=== PATIENT | male | born 1995 | race Two or more races ===

== ENCOUNTER 2019-06-29 23:00 | Emergency (ER) | payer OTHER ==
[~2019-06-29] VITALS: Ht 185.4 cm; Wt 70.3 kg
--- NOTE | 2019-06-29 23:10 | NUR ---
ED Nurse Note: Nurse Note: pt presents to ED via EMS arrival accompanied by RPATIMA after he attempted suicide RN MANAGER. per EMS pt tried to use his girlfriend's curling iron cord to choke himself. he has 2 dark strangulation fatima on his neck. pt reprots he used a razor blade to cut his wrists. his right wrist has about 13 laceration fatima and his left wrist has 4 lacerations, two of them are open. all of the scars are actively bleeding. pt also reports taking "sleeping meds" but an unknown amount and unknown medication. pt states that he has a h/o anxiety and depression but he hasnt been taking his meds.
[2019-06-29] MEDS ORDERED: PROZAC20 MG ORAL (23:11)
[2019-06-29] MEDS ORDERED: Activated Charcoal 50gm/240ml Btl ORAL ONE (23:15)
--- NOTE | 2019-06-29 23:15 | NUR ---
nursing field operations supervisor has been notified for sitter at bedside
[2019-06-29 23:20] VITALS: BP 112/80
[2019-06-29 23:39] LABS: BASOPHILS % (AUTO) 0.5 % (0.0-2.0); EOSINOPHILS % (AUTO) 0.8 % (0.0-3.0); HEMATOCRIT 42.9 % (42.0-52.0); HEMOGLOBIN 15.4 G/DL (14.2-18.0); MEAN CORPUSCULAR VOLUME 87 FL (80-99); MONOCYTES % (AUTO) 4.4 % (1.0-10.0); NEUTROPHILS % (AUTO) 76.3 % (45.0-75.0); PLATELET COUNT 216 K/UL (150-450); RED BLOOD COUNT 4.93 M/UL (4.70-6.10); RED CELL DISTRIBUTION WIDTH 11.6 % (11.6-14.8); WHITE BLOOD COUNT 11.4 K/UL (4.8-10.8)
[2019-06-29 23:52] LABS: ANION GAP 10 mmol/L (5-15); BLOOD UREA NITROGEN 8 mg/dL (7-18); CALCIUM 9.1 MG/DL (8.5-10.1); CARBON DIOXIDE 27 MMOL/L (21-32); CHLORIDE 98 MMOL/L (98-107); CREATININE 1.3 MG/DL (0.55-1.30); POTASSIUM 3.1 MMOL/L (3.5-5.1); SODIUM 135 MMOL/L (136-145)
[2019-06-29 23:56] LABS: ALANINE AMINOTRANSFERASE 41 U/L (12-78); ALBUMIN 4.3 G/DL (3.4-5.0); ALBUMIN/GLOBULIN RATIO 1.4 (1.0-2.7); ALKALINE PHOSPHATASE 65 U/L (46-116); ASPARTATE AMINO TRANSFERASE 18 U/L (15-37); BILIRUBIN,TOTAL 0.9 MG/DL (0.2-1.0)
[2019-06-29] MEDS ORDERED: Neosporin Oint Ud Pkt TOPIC ONE (23:58)
--- NOTE | 2019-06-30 | NUR ---
ED Nurse Note: pt tolerated lac repair well, wounds have been dressed by health and safety technician
--- NOTE | 2019-06-30 00:15 | NUR ---
sitter at bedside
--- NOTE | 2019-06-30 00:18 | Emergency Room Report ---
History of Present Illness General Chief Complaint: Behavioral Complaint Source: Patient Present Illness HPI This is a 24-year-old male with no past medical history. He does have a history of drug abuse. He was brought in as a 5150 with chief complaint of suicidal attempt. Patient said that he took some sleeping pill tonight. He cut himself on both forearms and try to hang himself. His girlfriend found him and called 911. Patient said he felt depressed and anxious. Does not want to live. Denies any alcohol tonight. Denies any respiratory distress. Said he felt sleepy. He took unknown amount of sleeping medication a few hours prior to arrival. Denies any other complaint. Never been in a psychiatric facility. Allergies: Coded Allergies: No Known Allergies (Unverified , 06/29/19) Patient History Past Medical History: see triage record, old chart reviewed Past Surgical History: none Family History: none Social History: tobacco use, ETOH, drug use Immunizations: other Reviewed Nursing Documentation: PMH: Agreed; PSxH: Agreed Nursing Documentation-PMH Past Medical History: No History, Except For Review of Systems ENT: Denies: sore throat Cardiovascular: Denies: chest pain, palpitations Gastrointestinal/Abdominal: Denies: nausea, vomiting, diarrhea Musculoskeletal: Denies: back problems Skin: Denies: rash Psychiatric: Reports: depression, suicidal/homicidal ideations Neurological: Denies: LENTZ, seizures All Other Systems: negative except mentioned in HPI Physical Exam Vital Signs Date Time Temp Pulse Resp B/P (MAP) Pulse Ox O2 Delivery O2 Flow Rate FiO2 06/29/19 22:59 98.4 117 19 112/80 (91) 98 Room Air Vitals with tachycardia Sp02 EP Interpretation: reviewed, normal General Appearance: alert/responsive, no apparent distress, non-toxic Head: normocephalic, atraumatic Eyes: PERRL, EOMI ENT: oropharynx normal Neck: supple/symm/no masses, other - He has abrasion mostly on the left side of the neck shape of ligature shadia. No crepitance or stridor. Respiratory: effort normal, no rhonchi, no wheezing Cardiovascular: no murmur, gallop, rub Gastrointestinal: non-tender, no mass, non-distended, no rebound/guarding, normal bowel sounds Musculoskeletal: gait & station normal, other - Both forearms with multiple laceration. Some are gaping and oozing blood. No tendon laceration or nerve injury. Neurologic: oriented x3, sensory intact, motor strength/tone normal Skin: no rash, normal palpation Procedures Laceration/Wound Repair Laceration/Wound Repair #1: Consent: Verbal Wound Location: upper extremity - Forearm, left Wound's Depth, Shape: linear Wound Length (cm): 15 Wound Explored: clean Irrigated w/ Saline (ccs): 1000 Anesthesia: 1% Lidocaine Volume Anesthetic (ccs): 12 Wound Debrided: minimal Wound Repaired With: sutures Suture Size/Type: 5:0, nylon Number of Sutures: 24 Layer Closure?: No Sterile Dressing Applied?: Yes Patient Tolerated: Well Complications: None Laceration/Wound Repair #2: Consent: Emergent Wound Location: upper extremity - Right forearm Wound's Depth, Shape: superficial, linear Wound Length (cm): 17 Wound Explored: clean Irrigated w/ Saline (ccs): 1000 Betadine Prep?: Yes Anesthesia: 1% Lidocaine Volume Anesthetic (ccs): 10 Wound Debrided: None Wound Repaired With: sutures Suture Size/Type: 5:0, nylon Number of Sutures: 27 Layer Closure?: No Sterile Dressing Applied?: Yes Patient Tolerated: Well Complications: None Progress He has multiple laceration on his left forearm. 2 were particularly deep in the other. Both of them are by the wrist. He has a couple of laceration that extend around to the dorsal aspect of the forearm at the mid forearm. Total length of the lacerations is 15 cm. He has multiple laceration on the right forearm. These are not as deep as the left but more numerous. They measure about 17 cm in total. No foreign body or tendon laceration. No nerve or artery injury. Medical Decision Making Diagnostic Impression: Primary Impression: Suicide and self-inflicted injury Qualified Codes: X83.8XXA - Intentional self-harm by other specified means, initial encounter Additional Impressions: Forearm laceration Qualified Codes: S51.819A - Laceration without foreign body of unspecified forearm, initial encounter Overdose Qualified Codes: T50.902A - Poisoning by unspecified drugs, medicaments and biological substances, intentional self-harm, initial encounter Hypokalemia ER Course Patient with overdose in suicide attempt. His hanging ligature injury show no evidence of tracheal injury. There is no crepitance or change in his phonation. No evidence of any fracture. His wounds are relatively superficial. No tendon laceration or nerve injury. No arterial injury. Patient given charcoal here. IV fluid given. Because of the multiple laceration, I gave him Ancef also. Repeat Tylenol level. If negative, will medically clear for psychiatric transfer and evaluation. At approximately 1:45 AM there was blood on the stretcher in on the floor. I checked the patient wound on his left wrist. The one over there the arterial artery side was bleeding. I hope pressure and slow down the bleeding. Without pressure or start bleeding again. I suspect that there is a vessel injury. So I placed a blood pressure cuff and tourniquet on his left arm. I took down the 4 sutures on that side. I explored the wound. He had ligated a vein next to the radial artery. It was bleeding from that. I ligated the 2 end of the vein. I placed a total of 3 internal sutures. And then I suture the outside with 4 interrupted suture. This stopped the bleeding. Patient tolerated suture without any problem. This was done under sterile condition. It is medically clear for psychiatric evaluation and transfer. EKG Diagnostic Results Rate: normal Rhythm: NSR ST Segments: no acute changes Rhythm Strip Diag. Results EP Interpretation: yes Rate: 88 Rhythm: NSR, no PVC's, no ectopy Last Vital Signs Date Time Temp Pulse Resp B/P (MAP) Pulse Ox O2 Delivery O2 Flow Rate FiO2 06/29/19 23:20 98.4 19 112/80 98 Room Air 06/29/19 23:20 117 Status: improved Disposition: XFER TO PSYCH HOSP/UNIT Condition: Stable Referrals: NOT CHOSEN SARA/,REFERRING (PCP) Deng Landis MD Jun 30, 2019 00:18
[2019-06-30] MEDS ORDERED: ceFAZolin 1gm/50ml Premix 50 ML IV ONE (00:30)
[2019-06-30] MEDS ORDERED: Tetanus/Diptheria/Pertussis IM ONE (00:30)
[2019-06-30] MEDS ORDERED: Neosporin Oint Ud Pkt TOPIC ONE (00:30)
--- NOTE | 2019-06-30 01:58 | NUR ---
ED Nurse Note: ERMD at bedside adding sutures to L wrist as pt began to bleed from one of the lacerations. pt will be moved to bed 6. care endorsed to TRAM Sandoval
[2019-06-30 02:09] LABS: ANION GAP 9 mmol/L (5-15); BLOOD UREA NITROGEN 8 mg/dL (7-18); CALCIUM 8.6 MG/DL (8.5-10.1); CARBON DIOXIDE 25 MMOL/L (21-32); CHLORIDE 102 MMOL/L (98-107); POTASSIUM 3.3 MMOL/L (3.5-5.1); SODIUM 136 MMOL/L (136-145)
[2019-06-30 02:11] LABS: APPEARANCE,URINE CLEAR; BILIRUBIN, URINE NEGATIVE (NEGATIVE); GLUCOSE, URINE (UA) NEGATIVE (NEGATIVE); KETONES,URINE 2+ (NEGATIVE); LEUKOCYTE ESTERASE ,URINE NEGATIVE (NEGATIVE); NITRITE,URINE NEGATIVE (NEGATIVE); PH,URINE 6 (4.5-8.0); PROTEIN,URINE 2+ (NEGATIVE); UROBILINOGEN,URINE 1 MG/DL (0.0-1.0)
[2019-06-30 02:12] LABS: COLOR,URINE YELLOW
[2019-06-30 02:30] VITALS: BP 120/82
--- NOTE | 2019-06-30 03:02 | NUR ---
ED Nurse Note: Patient transferred from Ortho to Bed 6. Patient alert, oriented, cooperative. No SOB. Breathing even and unlabored. VSS.
[2019-06-30 03:12] VITALS: BP 127/82
[2019-06-30 05:06] VITALS: BP 129/79
--- NOTE | 2019-06-30 05:06 | NUR ---
ED Nurse Note: Patient seen sleeping in bed. No SOB. Breathing even and unlabored. VSS. Sitter at bedside.
[2019-06-30 07:12] VITALS: BP 131/76
--- NOTE | 2019-06-30 07:21 | NUR ---
HAND-OFF: Report given to Nancy UGALDE. Endorsed plan of care.
--- NOTE | 2019-06-30 07:22 | NUR ---
ED Nurse Note: Receive patient in bed, patient placed on a director phone, vital sigsn stable see flowsheet. patient is alert awake x4, breakfast tray provided, patient ate and able to tolerate his breakfast well. patient's own changed to clean ones, wound dressings on the right and left forarm changed, wound assessed, no bleeding noted. IV was noted to be discontinued by patient, removed all IV dressing, no bleeding noted. sitter at bedside.
[2019-06-30 09:00] VITALS: BP 127/72
--- NOTE | 2019-06-30 10:01 | NUR ---
ED Nurse Note: spoke with Ashly at [facility], nurse to nurse report to be given to [phone]. Patient to be transferred after 1200PM. and report to be given around that time per Di Di
--- NOTE | 2019-06-30 10:03 | NUR ---
HAND-OFF: Report given to Nancy UGALDE. patient transferred to ortho with sitter.
--- NOTE | 2019-06-30 10:17 | NUR ---
ED Nurse Note:pt. is calm, sitter is at bedside
--- NOTE | 2019-06-30 13:15 | NUR ---
ER DISCHARGE NOTE: Patient is cleared to be Transferred. Patient is being transferred accompanied by ambulance personnel and belongings were sent with patient. Addendum: 06/30/19 at 1501 by RENALDO D/C ORDER FOR MILA AT 1823
[2019-06-30 13:17] VITALS: BP 113/78
--- NOTE | 2019-06-30 14:19 | Cardiology Report ---
APPROVED REPORT EKG Measurement Heart [id number] Normal sinus rhythm Possible Left atrial enlargement Septal infarct, age undetermined Abnormal ECG
== END 2019-06-30 13:17 ==
LOC: EDBD 23:00 → EMR 23:14
DX: T50.902A Poisoning by unspecified drugs, medicaments and biological substances, intentional self-harm, initial encounter (principal); S51.819A Laceration without foreign body of unspecified forearm, initial encounter; S51.812A Laceration without foreign body of left forearm, initial encounter; S51.811A Laceration without foreign body of right forearm, initial encounter; S61.512A Laceration without foreign body of left wrist, initial encounter; Y92.9 Unspecified place or not applicable; X78.9XXA Intentional self-harm by unspecified sharp object, initial encounter; E87.6 Hypokalemia; Z23 Encounter for immunization
CPT/HCPCS: 12007; 13120; 36415; 80048; 80053; 80307; 81003; 85025; 90471; 90715; 93005; 96361; 96365; 99285; G0480; J0690; J7030; J8499

== ENCOUNTER 2019-07-08 16:59 | Emergency (ER) | payer OTHER ==
[~2019-07-08] VITALS: Ht 180.3 cm; Wt 83.9 kg
[2019-07-08] VITALS (9 sets, daily range): BP systolic 124–168; BP diastolic 54–87
[~2019-07-08 16:59] MED LIST: PROZAC20 MG ORAL
--- NOTE | 2019-07-08 17:00 | NUR ---
ED Nurse Note: Patient arrived via [employer] with police escort not under arrest. Arrived from home. Per police, neighbors called because pt was running naked in the apartment hallways after doing crystal meth. Pt denies suicidal/homicidal ideation. Pt initially confused, not cooperative with care, banging head on siderail. Seizure pads applied to side rail to protect patient. Pt tolerated IV start/lab draw well. MD at bedside. Meds ordered. Pt without chest pain, N&V, or diarrhea. No dyspnea.
--- NOTE | 2019-07-08 17:14 | Emergency Room Report ---
History of Present Illness General Chief Complaint: Overdose Source: Patient Present Illness HPI Disclaimer: Please note that this report is being documented using DRAGON technology. This can lead to erroneous entry secondary to incorrect interpretation by the dictating instrument. HPI: 24-year-old male history of polysubstance abuse presents for evaluation of agitation and bizarre behavior. EMS brings him in after his building cleaner called the police. He was found wandering his lobby naked, acting erratically, shouting out and lashing out at people. He reportedly admitted to doing crystal meth over the past few days unclear if there are any other drug use or alcohol use. The patient cannot provide any information and all he says is " you are not in your realm." He is lashing out at staff and arrives restrained by EMS. He is not providing any medical history. No trauma was reported by EMS. Review of his medical record shows he was in the emergency department recently with self-inflicted wounds over his upper extremities. The sutures appear to be in place and the wounds are healing well. No reported suicidality per EMS. Cannot assess the patient at this time. PMH: Substance abuse PSH: Unknown Allergies: Unknown Social Hx: Reported crystal meth use otherwise unknown Allergies: Coded Allergies: No Known Allergies (Unverified , 06/29/19) Nursing Documentation-PMH Past Medical History: No Stated History Review of Systems All Other Systems: limited - Cannot obtain due to clinical condition Physical Exam Vital Signs Date Time Temp Pulse Resp B/P (MAP) Pulse Ox O2 Delivery O2 Flow Rate FiO2 07/08/19 16:56 134 20 168/75 (106) 99 Room Air General: Awake, agitated, flashing out at staff, restrained in bed HEENT: NC/AT. EOMI. pupils are 8 mm and reactive bilaterally. Dry mucous membranes. Neck: Supple, trachea midline Chest Wall: No tenderness, no deformity Cardiovascular: Tachycardic. S1 and S2 normal. No murmur appreciated Resp: Normal work of breathing. No cough, wheezing or crackles appreciated Abdomen: Abdomen is soft, nondistended. Nontender Skin: Intact. Dry. No abrasions, laceration or rash over the exposed skin MSK: Normal tone and bulk. Moving all extremities. No obvious deformity. No significant rigidity Neuro: Awake, aggressive, lashing out, screaming and speaking nonsensically. Moving all extremities. No clonus in the lower extremities. Medical Decision Making Restraint Reassesment I, Timothy Presley MD, have personally evaluated this patient. Laboratory tests have been reviewed and addressed accordingly. The patient is deemed to present a danger to themselves and/or others. This is based on the exam, history ( provided by patient, EMS/[employer] and/or family) and observed or reported behavior. Attempts for non-invasive measures have been considered and/or attempted, however, have been futile. It is in the best interest of the nursing staff, the patient, and others involved in this patient's care that behavioral restraints be applied. Patient evaluation reveals the following: Delirium, combativeness, danger to staff Diagnostic Impression: Primary Impression: Amphetamine abuse Additional Impression: Dehydration ER Course Is a 24-year-old male presenting with acute agitation in the setting of reported crystal meth abuse. Unknown if there are any coingestants. No trauma reported by EMS. The patient requires restraints as he is lashing out at staff , agitated and combative. We will start a broad metabolic, infectious and tox logic work-up. Differential includes but is not limited to substance abuse, dehydration, acute psychosis, serotonin syndrome, NMS, anticholinergic syndrome , alcohol intoxication, major metabolic dysfunction. We will start IV fluids, obtain EKG, broad labs and patient will require chemical sedation. Will remain in wrist restraints until he is more cooperative. Laboratory Tests Test 07/08/19 17:19 White Blood Count 12.1 K/UL (4.8-10.8) H Red Blood Count 4.47 M/UL (4.70-6.10) L Hemoglobin 13.9 G/DL (14.2-18.0) L Hematocrit 38.9 % (42.0-52.0) L Mean Corpuscular Volume 87 FL (80-99) Mean Corpuscular Hemoglobin 31.1 PG (27.0-31.0) H Mean Corpuscular Hemoglobin Concent 35.7 G/DL (32.0-36.0) Red Cell Distribution Width 11.8 % (11.6-14.8) Platelet Count 312 K/UL (150-450) Mean Platelet Volume 7.9 FL (6.5-10.1) Neutrophils (%) (Auto) 61.5 % (45.0-75.0) Lymphocytes (%) (Auto) 27.4 % (20.0-45.0) Monocytes (%) (Auto) 9.8 % (1.0-10.0) Eosinophils (%) (Auto) 0.2 % (0.0-3.0) Basophils (%) (Auto) 1.1 % (0.0-2.0) Urine Color Yellow Urine Appearance Clear Urine pH 5 (4.5-8.0) Urine Specific Dumas 1.025 (1.005-1.035) Urine Protein 3+ (NEGATIVE) H Urine Glucose (UA) Negative (NEGATIVE) Urine Ketones 2+ (NEGATIVE) H Urine Blood Negative (NEGATIVE) Urine Nitrite Negative (NEGATIVE) Urine Bilirubin Negative (NEGATIVE) Urine Urobilinogen 1 MG/DL (0.0-1.0) H Urine Leukocyte Esterase 1+ (NEGATIVE) H Urine RBC 0-2 /HPF (0 - 0) H Urine WBC 0-2 /HPF (0 - 0) Urine Squamous Epithelial Cells None /LPF (NONE/OCC) Urine Bacteria None /HPF (NONE) Urine Mucus Many /LPF (NONE/OCC) H Sodium Level 145 MMOL/L (136-145) Potassium Level 3.7 MMOL/L (3.5-5.1) Chloride Level 104 MMOL/L (98-107) Carbon Dioxide Level 26 MMOL/L (21-32) Anion Gap 15 mmol/L (5-15) Blood Urea Nitrogen 16 mg/dL (7-18) Creatinine 1.5 MG/DL (0.55-1.30) H Estimate Glomerular Filtration Rate 57.0 mL/min (>60) Glucose Level 133 MG/DL (74-106) H Calcium Level 10.1 MG/DL (8.5-10.1) Total Bilirubin 0.6 MG/DL (0.2-1.0) Aspartate Amino Transferase (AST) 50 U/L (15-37) H Alanine Aminotransferase (ALT) 61 U/L (12-78) Alkaline Phosphatase 74 U/L (46-116) Total Creatine Kinase 1049 U/L (26-308) H Troponin I 0.000 ng/mL (0.000-0.056) Total Protein 8.3 G/DL (6.4-8.2) H Albumin 4.9 G/DL (3.4-5.0) Globulin 3.4 g/dL Albumin/Globulin Ratio 1.4 (1.0-2.7) Salicylates Level 1.7 ug/mL (2.8-20) L Urine Opiates Screen Negative (NEGATIVE) Acetaminophen Level < 2 MCG/ML (10-30) L Urine Barbiturates Screen Negative (NEGATIVE) Phencyclidine (PCP) Screen Negative (NEGATIVE) Urine Amphetamines Screen Positive (NEGATIVE) H Urine Benzodiazepines Screen Positive (NEGATIVE) H Urine Cocaine Screen Negative (NEGATIVE) Urine Marijuana (THC) Screen Positive (NEGATIVE) H Serum Alcohol < 3 mg/dL EKG Diagnostic Results Rate: tachycardiac Rhythm: NSR ST Segments: no acute changes Other Impression Sinus tachycardia, slight right axis, normal intervals, no ST segment changes Rhythm Strip Diag. Results EP Interpretation: yes Rate: 110s Rhythm: no PVC's, no ectopy Reevaluation Time: 21:22 Last Vital Signs Date Time Temp Pulse Resp B/P (MAP) Pulse Ox O2 Delivery O2 Flow Rate FiO2 07/08/19 16:56 134 20 168/75 (106) 99 Room Air Reevaluation Impression Toxin returned positive for amphetamines and THC as well as benzodiazepines that he was given those in the emergency department. Labs show slight elevation in creatinine likely dehydration as well as secondary to some small amount of muscle breakdown given his amphetamine use and agitation. He has now calm and cooperative. Remains tachycardic but now he admits to using amphetamines earlier in the day. He denies suicidality and states this was recreational. He denies any complaints at this time and is requesting discharge home. He has received 2 L IV fluids. Patient is behaving appropriately and thinking clearly. He has capacity to make his own medical decisions. I discussed with him the need to drink copious amounts of fluids over the next few days to continue flushing his kidneys and that he needs to follow-up with the PMD or return to the emergency department here for repeat testing of his creatinine within the week. Names of clinics in the area have been provided in his discharge paperwork. We discussed reasons to return to the emergency department. He will be discharged to follow-up as an outpatient. Disposition: HOME, SELF-CARE Condition: Improved Timothy Presley MD Jul 08, 2019 17:14
[2019-07-08] MEDS ORDERED: LORazepam Inj 2mg/ml 1ml IV ONE (17:15)
[2019-07-08] MEDS ORDERED: UNOBMED (17:17)
[2019-07-08 17:35] LABS: BASOPHILS % (AUTO) 1.1 % (0.0-2.0); EOSINOPHILS % (AUTO) 0.2 % (0.0-3.0); HEMATOCRIT 38.9 % (42.0-52.0); HEMOGLOBIN 13.9 G/DL (14.2-18.0); LYMPHOCYTES % (AUTO) 27.4 % (20.0-45.0); MEAN CORPUSCULAR VOLUME 87 FL (80-99); MONOCYTES % (AUTO) 9.8 % (1.0-10.0); NEUTROPHILS % (AUTO) 61.5 % (45.0-75.0); PLATELET COUNT 312 K/UL (150-450); RED BLOOD COUNT 4.47 M/UL (4.70-6.10); RED CELL DISTRIBUTION WIDTH 11.8 % (11.6-14.8); WHITE BLOOD COUNT 12.1 K/UL (4.8-10.8)
--- NOTE | 2019-07-08 17:35 | NUR ---
ED Nurse Note: Pt with good affect from ativan. Tolerates straight cath/urine obtainment well. Pt noted to be more calm. Closer observation of pt. Pt denies desire to notify staff to notify next of kin or family/friends. No respiratory depression.
[2019-07-08 17:46] LABS: ANION GAP 15 mmol/L (5-15); BLOOD UREA NITROGEN 16 mg/dL (7-18); CALCIUM 10.1 MG/DL (8.5-10.1); CARBON DIOXIDE 26 MMOL/L (21-32); CHLORIDE 104 MMOL/L (98-107); CREATININE 1.5 MG/DL (0.55-1.30); POTASSIUM 3.7 MMOL/L (3.5-5.1); SODIUM 145 MMOL/L (136-145)
[2019-07-08 17:48] LABS: APPEARANCE,URINE CLEAR; BILIRUBIN, URINE NEGATIVE (NEGATIVE); GLUCOSE, URINE (UA) NEGATIVE (NEGATIVE); KETONES,URINE 2+ (NEGATIVE); LEUKOCYTE ESTERASE ,URINE 1+ (NEGATIVE); NITRITE,URINE NEGATIVE (NEGATIVE); PH,URINE 5 (4.5-8.0); PROTEIN,URINE 3+ (NEGATIVE); UROBILINOGEN,URINE 1 MG/DL (0.0-1.0)
--- NOTE | 2019-07-08 17:48 | NUR ---
ED Nurse Note: Pt refuses EKG. aware. Pt educated regarding EKG.
[2019-07-08 17:50] LABS: COLOR,URINE YELLOW
--- NOTE | 2019-07-08 17:51 | NUR ---
Attempted EKG, patient refused. Patient became extremely agitated. ERMD and RN notified.
[2019-07-08 17:59] LABS: ALANINE AMINOTRANSFERASE 61 U/L (12-78); ALBUMIN 4.9 G/DL (3.4-5.0); ALBUMIN/GLOBULIN RATIO 1.4 (1.0-2.7); ALKALINE PHOSPHATASE 74 U/L (46-116); ASPARTATE AMINO TRANSFERASE 50 U/L (15-37); BILIRUBIN,TOTAL 0.6 MG/DL (0.2-1.0); CREATINE KINASE 1049 U/L (26-308)
--- NOTE | 2019-07-08 18:00 | NUR ---
ED Nurse Note: pt becoming more calm but cont with confusion when rn speaking to him with nonsensical paranoid conversations. pt vague as to why lapd alled and what happened at home
--- NOTE | 2019-07-08 18:15 | NUR ---
ED Nurse Note: pt reeval by md, pt more calm ankle restraints removed. new orders noted
--- NOTE | 2019-07-08 18:30 | NUR ---
ED Nurse Note: all restraints d/c'd as pt is now calm and cooperative with rn care and after md reeval. no new c/o
--- NOTE | 2019-07-08 18:42 | NUR ---
ED Nurse Note: pt noted to have bilat healing lacerations to inner wrists. [facility] and to go to in [facility] center in [place]. pt relates not a prior suicide attempt but a self mutilation attempt.
--- NOTE | 2019-07-08 18:59 | NUR ---
ED Nurse Note: pt remains cooperative and calm at this time. ivf infusing without incident.
--- NOTE | 2019-07-08 19:00 | NUR ---
ED Nurse Note: Received report from Lizz UGALDE. Patient is currently willing to adhere to plan. Patient is A&Ox4, IV fluids running. Will continue to monitor.
[2019-07-08] MEDS ORDERED: DIAZEPAM IV ONE (19:45)
[2019-07-08] MEDS ORDERED: [UNRECOGNIZED DRUG - OTHER] IV ONE (19:45)
--- NOTE | 2019-07-08 20:00 | NUR ---
ED Nurse Note: Patient is a little aggitated, will continue to monitor and reassure patient of plan.
--- NOTE | 2019-07-08 21:00 | NUR ---
ED Nurse Note: Patient changed mind about receiving valium to calm tachycardia. Patient tolerated medication well. N/S Fluids running, will continue to monitor until discharge.
--- NOTE | 2019-07-08 21:30 | NUR ---
ED Nurse Note: Patient tolerated fluids well. Patient cleared for discharge with no s/s of acute distress. Appears calm and is A&Ox4. Heart rate improved to 110. Patient verbalized understanding of discharge instructions. ID band removed, IV removed. Patient departed with all belongings.
--- NOTE | 2019-07-08 21:44 | NUR ---
ED Nurse Note: Patient provided with adequest clothes for the weather, a shirt, jeans, socks and tennis shoes.
--- NOTE | 2019-07-09 15:54 | Cardiology Report ---
APPROVED REPORT EKG Measurement Heart [id number] Sinus tachycardia Rightward axis Borderline ECG
== END 2019-07-08 21:46 | disposition home or self-care (01) ==
LOC: EDBD 16:59 → EMR 17:28
DX: F15.10 Other stimulant abuse, uncomplicated (principal); E86.0 Dehydration; R00.0 Tachycardia, unspecified
CPT/HCPCS: 36415; 80053; 80307; 81003; 82550; 84484; 85025; 93005; 96361; 96374; 96375; 99284; G0480; J3360; J7030

== ENCOUNTER 2019-07-10 07:52 | Emergency (ER) | payer OTHER ==
[~2019-07-10] VITALS: Ht 177.8 cm; Wt 65.8 kg
[~2019-07-10 07:52] MED LIST changes: +UNOBMED
--- NOTE | 2019-07-10 08:00 | NUR ---
ED Nurse Note: Patient arrived by EMS from home. Per EMS, patient was drinking ETOH and smoking marijuana last night, and his girlfriend called 911 this AM. Patient Alert and oriented, refusing to answer most questions. Patient has flat affect. Cooperative and follows commands. Multiple cuts noted on bilateral wrist, closed with stitches. Patient on the equipment monitor phototypesetting, bed in lowest position.
[2019-07-10 08:08] VITALS: BP 153/98
--- NOTE | 2019-07-10 08:14 | Emergency Room Report ---
History of Present Illness General Chief Complaint: Alcohol Intoxication Source: Patient, EMS Present Illness HPI Patient presents after allegedly drinking alcohol and possibly using other drugs last night. He told police that if he was left alone he would harm himself. When paramedics arrived he denied suicidal ideation with them but they say that he was not answering questions. He states he is supposed be taking medication for depression. According to police he told them that if he was left alone he would harm himself. The patient is not answering questions at this time. The patient was seen June 29 after a significant suicide attempt. This is the ER decision making: ER Course Patient with overdose in suicide attempt. His hanging ligature injury show no evidence of tracheal injury. There is no crepitance or change in his phonation. No evidence of any fracture. His wounds are relatively superficial. No tendon laceration or nerve injury. No arterial injury. Patient given charcoal here. IV fluid given. Because of the multiple laceration, I gave him Ancef also. Repeat Tylenol level. If negative, will medically clear for psychiatric transfer and evaluation. At approximately 1:45 AM there was blood on the stretcher in on the floor. I checked the patient wound on his left wrist. The one over there the arterial artery side was bleeding. I hope pressure and slow down the bleeding. Without pressure or start bleeding again. I suspect that there is a vessel injury. So I placed a blood pressure cuff and tourniquet on his left arm. I took down the 4 sutures on that side. I explored the wound. He had ligated a vein next to the radial artery. It was bleeding from that. I ligated the 2 end of the vein. I placed a total of 3 internal sutures. And then I suture the outside with 4 interrupted suture. This stopped the bleeding. Patient tolerated suture without any problem. This was done under sterile condition. It is medically clear for psychiatric evaluation and transfer. Allergies: Coded Allergies: No Known Allergies (Unverified , 06/29/19) Patient History Limited by: medical condition Past Medical History: see triage record, old chart reviewed Social History: Reports: alcohol use, drug use Social History Narrative With girlfriend Reviewed Nursing Documentation: PMH: Agreed; PSxH: Agreed Nursing Documentation-PMH Past Medical History: No History, Except For History Of Psychiatric Problem: Yes - bipolar, depression Review of Systems All Other Systems: limited Physical Exam Vital Signs Date Time Temp Pulse Resp B/P (MAP) Pulse Ox O2 Delivery O2 Flow Rate FiO2 07/10/19 07:52 98.2 100 18 140/94 (109) 98 Room Air Sp02 EP Interpretation: reviewed, normal General Appearance: well appearing, no apparent distress, GCS 15 Head: normocephalic Eyes: bilateral eye PERRL, bilateral eye EOMI, bilateral eye Scleral Injection ENT: moist mucus membranes Neck: supple Respiratory: lungs clear, normal breath sounds Cardiovascular #1: regular rate, rhythm Cardiovascular #2: 2+ radial (R) Gastrointestinal: normal inspection, normal bowel sounds, non tender, no mass, non-distended, scaphoid Musculoskeletal: back normal, gait/station normal, normal range of motion Neurologic: alert, roving hauler III-XII nml as tested, motor strength/tone normal, sensory intact, oriented - Not answering questions Psychiatric: depressed affect, other - Denies suicidal ideation to me at this time Suicide Risk Assessment: Suicidal Ideation: Yes Skin: warm/dry, wd healing/no infection noted - Lacerations bilateral wrists Procedures Additional Procedure Procedure Narrative Removal of sutures bilateral wrists. Tolerated well. Medical Decision Making Diagnostic Impression: Primary Impression: Substance abuse Additional Impressions: Bipolar disorder Qualified Codes: F31.9 - Bipolar disorder, unspecified Encounter for removal of sutures Amphetamine abuse ER Course Patient presents with alleged suicidal ideation with [employer] and EMS involved. According to EMS he said that if he was left alone he would harm himself. He was not specific at that time. Differential includes suicidal ideation, substance abuse, electrolyte imbalance, exacerbation of bipolar disorder, noncompliance amongst others. The patient will be evaluated with labs. The patient is observed. At this point is voluntary. Labs significant for mild leukocytosis. Potassium minimally low. CK minimally elevated. Tox screen positive for amphetamines and THC. Medically clear for PET eval. 10:[address] on [address] [facility]. Patient not want to go. Patient's girlfriend convinced him to go to the other facility. In addition he was on a 5150 at that time. Laboratory Tests Test 07/10/19 06:00 07/10/19 09:18 White Blood Count 14.0 K/UL (4.8-10.8) H Red Blood Count 4.39 M/UL (4.70-6.10) L Hemoglobin 13.6 G/DL (14.2-18.0) L Hematocrit 39.1 % (42.0-52.0) L Mean Corpuscular Volume 89 FL (80-99) Mean Corpuscular Hemoglobin 31.1 PG (27.0-31.0) H Mean Corpuscular Hemoglobin Concent 34.8 G/DL (32.0-36.0) Red Cell Distribution Width 12.4 % (11.6-14.8) Platelet Count 287 K/UL (150-450) Mean Platelet Volume 8.1 FL (6.5-10.1) Neutrophils (%) (Auto) 66.1 % (45.0-75.0) Lymphocytes (%) (Auto) 24.1 % (20.0-45.0) Monocytes (%) (Auto) 8.4 % (1.0-10.0) Eosinophils (%) (Auto) 0.4 % (0.0-3.0) Basophils (%) (Auto) 0.9 % (0.0-2.0) Sodium Level 144 MMOL/L (136-145) Potassium Level 3.4 MMOL/L (3.5-5.1) L Chloride Level 105 MMOL/L (98-107) Carbon Dioxide Level 26 MMOL/L (21-32) Anion Gap 13 mmol/L (5-15) Blood Urea Nitrogen 13 mg/dL (7-18) Creatinine 1.1 MG/DL (0.55-1.30) Estimate Glomerular Filtration Rate > 60 mL/min (>60) Glucose Level 84 MG/DL (74-106) Calcium Level 9.1 MG/DL (8.5-10.1) Total Bilirubin 1.1 MG/DL (0.2-1.0) H Direct Bilirubin 0.3 MG/DL (0.0-0.3) Aspartate Amino Transferase (AST) 30 U/L (15-37) Alanine Aminotransferase (ALT) 55 U/L (12-78) Alkaline Phosphatase 66 U/L (46-116) Total Creatine Kinase 916 U/L (26-140) H Total Protein 7.9 G/DL (6.4-8.2) Albumin 4.6 G/DL (3.4-5.0) Globulin 3.3 g/dL Albumin/Globulin Ratio 1.4 (1.0-2.7) Salicylates Level 1.4 ug/mL (2.8-20) L Acetaminophen Level < 2 MCG/ML (10-30) L Serum Alcohol < 3 mg/dL Urine Color Pale yellow Urine Appearance Clear Urine pH 6 (4.5-8.0) Urine Specific [place] 1.020 (1.005-1.035) Urine Protein Negative (NEGATIVE) Urine Glucose (UA) Negative (NEGATIVE) Urine Ketones 4+ (NEGATIVE) H Urine Blood Negative (NEGATIVE) Urine Nitrite Negative (NEGATIVE) Urine Bilirubin Negative (NEGATIVE) Urine Urobilinogen Normal MG/DL (0.0-1.0) Urine Leukocyte Esterase Negative (NEGATIVE) Urine Opiates Screen Negative (NEGATIVE) Urine Barbiturates Screen Negative (NEGATIVE) Phencyclidine (PCP) Screen Negative (NEGATIVE) Urine Amphetamines Screen Positive (NEGATIVE) H Urine Benzodiazepines Screen Negative (NEGATIVE) Urine Cocaine Screen Negative (NEGATIVE) Urine Marijuana (THC) Screen Positive (NEGATIVE) H Last Vital Signs Date Time Temp Pulse Resp B/P (MAP) Pulse Ox O2 Delivery O2 Flow Rate FiO2 07/10/19 16:14 98.2 98 16 150/80 98 Room Air Status: improved Disposition: XFER TO PSYCH HOSP/UNIT Condition: Stable Referrals: NOT CHOSEN IPA/,REFERRING (PCP) Star Spencer MD Jul 10, 2019 08:14
[2019-07-10 08:22] LABS: BASOPHILS % (AUTO) 0.9 % (0.0-2.0); EOSINOPHILS % (AUTO) 0.4 % (0.0-3.0); HEMATOCRIT 39.1 % (42.0-52.0); HEMOGLOBIN 13.6 G/DL (14.2-18.0); LYMPHOCYTES % (AUTO) 24.1 % (20.0-45.0); MEAN CORPUSCULAR VOLUME 89 FL (80-99); MONOCYTES % (AUTO) 8.4 % (1.0-10.0); NEUTROPHILS % (AUTO) 66.1 % (45.0-75.0); PLATELET COUNT 287 K/UL (150-450); RED BLOOD COUNT 4.39 M/UL (4.70-6.10); RED CELL DISTRIBUTION WIDTH 12.4 % (11.6-14.8)
--- NOTE | 2019-07-10 08:22 | NUR ---
ED Nurse Note: Patient unable to provide urine. Patient speaking more. Patient states he does not want to hurt himself or others.
[2019-07-10 08:27] LABS: ALBUMIN 4.6 G/DL (3.4-5.0); ANION GAP 13 mmol/L (5-15); CARBON DIOXIDE 26 MMOL/L (21-32); CHLORIDE 105 MMOL/L (98-107); CREATININE 1.1 MG/DL (0.55-1.30); POTASSIUM 3.4 MMOL/L (3.5-5.1); SODIUM 144 MMOL/L (136-145)
[2019-07-10 09:05] LABS: BLOOD UREA NITROGEN 13 mg/dL (7-18)
[2019-07-10 09:06] LABS: ALANINE AMINOTRANSFERASE 55 U/L (12-78); ASPARTATE AMINO TRANSFERASE 30 U/L (15-37); BILIRUBIN,TOTAL 1.1 MG/DL (0.2-1.0); CALCIUM 9.1 MG/DL (8.5-10.1); CREATINE KINASE 916 U/L (26-140)
[2019-07-10 09:07] LABS: ALBUMIN/GLOBULIN RATIO 1.4 (1.0-2.7); ALKALINE PHOSPHATASE 66 U/L (46-116)
[2019-07-10 09:08] LABS: BILIRUBIN,DIRECT 0.3 MG/DL (0.0-0.3)
--- NOTE | 2019-07-10 09:30 | NUR ---
ED Nurse Note: Patient resting in bed. No signs of distress, patient cooperative. Will continue to monitor.
[2019-07-10 09:41] LABS: APPEARANCE,URINE CLEAR; BILIRUBIN, URINE NEGATIVE (NEGATIVE); COLOR,URINE PALE YELLOW; GLUCOSE, URINE (UA) NEGATIVE (NEGATIVE); KETONES,URINE 4+ (NEGATIVE); LEUKOCYTE ESTERASE ,URINE NEGATIVE (NEGATIVE); NITRITE,URINE NEGATIVE (NEGATIVE); PH,URINE 6 (4.5-8.0); PROTEIN,URINE NEGATIVE (NEGATIVE); UROBILINOGEN,URINE NORMAL MG/DL (0.0-1.0)
--- NOTE | 2019-07-10 11:50 | NUR ---
ED Nurse Note: Patient resting, calm and cooperative. VSS.
[2019-07-10] MEDS ORDERED: LORazepam 1mg tab ORAL ONE (14:00)
--- NOTE | 2019-07-10 14:30 | NUR ---
JC FROM [facility] PLACED PATIENT ON 5150 HOLD . PATIENT IS UPSET BEING ON HOLD AND TRANSFER OUT TO ANOTHER FACILITY PATIENT WAS INFORMED THAT HE IS ON A HOLD SO HAE HAS TO GOTO THE HOSPITAL
--- NOTE | 2019-07-10 15:15 | NUR ---
REPORT GIVEN TO NURSE . PATIENT WILL BE TRANSFERD VIA [facility] ETA 20 MINITES
--- NOTE | 2019-07-10 16:06 | NUR ---
patients girlftried has been infomed that patient has been transferd to [facility] psych girlfriends name MONTEZ #[id number]
[2019-07-10 16:14] VITALS: BP 150/80
== END 2019-07-10 16:16 ==
LOC: EDBD 07:52 → EMR 08:02
DX: F19.10 Other psychoactive substance abuse, uncomplicated (principal); F31.9 Bipolar disorder, unspecified; F15.10 Other stimulant abuse, uncomplicated; D72.829 Elevated white blood cell count, unspecified
CPT/HCPCS: 36415; 80053; 80307; 81003; 82248; 82550; 85025; 99285; G0480; J7030